=== PATIENT | female | born 1995 | race Two or more races ===

== ENCOUNTER 2018-12-15 11:09 | Inpatient (IN) | payer MEDICAID ==
[~2018-12-15] VITALS: Ht 154.9 cm; Wt 54.5 kg
[2018-12-15] MEDS: ACETAMINOPHEN 325 MG TABLET PO ONE ×2 (11:50→12:28)
[2018-12-15] MEDS ORDERED: SODIUM CHLORIDE 0.9% 2,200 ML IV ONE (12:00)
[2018-12-15] MEDS ORDERED: ACETAMINOPHEN 500 MG TABLET PO ONE (12:00)
[2018-12-15 12:42] LABS: BASOPHILS % (AUTO) 0.4 % (0.0-2.0); EOSINOPHILS % (AUTO) 0.1 % (1.0-6.0); HEMATOCRIT 38.2 % (36-46); HEMOGLOBIN 13.3 g/dL (12.0-16.0); LYMPHOCYTES # (AUTO) 1.6 K/uL (1.0-4.8); LYMPHOCYTES % (AUTO) 6.6 % (22.0-44.0); MEAN CORPUSCULAR HEMOGLOBIN 31.4 pg (26.0-34.0); MEAN CORPUSCULAR HGB CONC 34.9 G/dL (31.0-37.0); MEAN CORPUSCULAR VOLUME 90 fL (80-100); MONOCYTES # (AUTO) 1.2 K/uL (0.1-1.0); NEUTROPHILS # (AUTO) 20.7 K/uL (1.8-7.7); PLATELET COUNT (AUTO) 394 K/uL (150-450); RED BLOOD CELL COUNT(AUTO) 4.25 MIL/uL (4.00-5.20); RED CELL DISTRIBUTION WIDTH 14.5 % (11.5-14.5)
[2018-12-15 12:45] LABS: NEUTROPHILS % (AUTO) 87.9 % (40.0-70.0)
[2018-12-15 13:03] LABS: LACTIC ACID 1.4 mmol/L (0.4-2.0)
[2018-12-15 13:10] LABS: ALANINE AMINOTRANSFERASE 23 U/L (12-78); ALBUMIN 3.2 g/dL (3.4-5.0); ALKALINE PHOSPHATASE 138 U/L (46-116); ANION GAP 16 mmol/L (8-16); ASPARTATE AMINOTRANSFERASE 15 U/L (15-37); BILIRUBIN,TOTAL 0.6 mg/dL (0.1-1.0); CALCIUM, TOTAL 8.3 mg/dL (8.8-10.5); CARBON DIOXIDE 20 mmol/L (22-29); CHLORIDE 103 mmol/L (98-107); CREATININE 0.64 mg/dL (0.60-1.30); GLOMERULAR FILTR. RATE CALC > 60 mL/min (>60); GLUCOSE,RANDOM 118 mg/dL (70-110); SODIUM SERUM 139 mmol/L (136-145); TOTAL PROTEIN, SERUM 7.6 g/dL (6.4-8.2); UREA NITROGEN, BLOOD 15 mg/dL (7-18)
[2018-12-15 13:26] LABS: APPEARANCE,URINE CLOUDY (CLEAR); BILIRUBIN,URINE NEGATIVE (NEGATIVE); GLUCOSE, URINE (UA) NEGATIVE (NEGATIVE); KETONES,URINE NEGATIVE (NEGATIVE); LEUKOCYTE ESTERASE ,URINE LARGE (NEGATIVE); NITRATE,URINE NEGATIVE (NEGATIVE); OCCULT BLOOD,URINE MODERATE (NEGATIVE); PH,URINE 5.5 (5.0-8.0); PROTEIN,URINE NEGATIVE (NEGATIVE)
[2018-12-15 13:46] LABS: WBC,URINE 51-100 /HPF (0-5)
[2018-12-15 13:47] LABS: BACTERIA,URINE Few /HPF (None Seen); SQUAMOUS EPITHELIAL CELL,UR Few /LPF (None Seen)
[2018-12-15] MEDS ORDERED: MAGNESIUM SULFATE 2 GM/WATER 50 ML IV ONE (14:15)
[2018-12-15] MEDS ORDERED: POTASSIUM CHLORIDE 20 MEQ ER TABLET PO ONE (14:15)
[2018-12-15] MEDS ORDERED: AMPICILLIN SODIUM/SULBACTAM NA 1.5 GM/VIAL IM ONE (14:45)
[2018-12-15] MEDS ORDERED: DOXYCYCLINE HYCLATE 100 MG in DEXTROSE 5%-WATER 100 ML IV ONE (14:45)
[2018-12-15] MEDS ORDERED: MORPHINE SULFATE 4 MG/ML SYRINGE IVP ONE (15:30)
[2018-12-15] MEDS ORDERED: 0.9% SODIUM CHLORIDE 10 ML SYRINGE IVP PRN (15:30)
[2018-12-15] MEDS ORDERED: DEXTROSE 5% IV ONE (15:30)
[2018-12-15] MEDS ORDERED: WATER IV ONE (15:30)
[2018-12-15] MEDS ORDERED: CLINDAMYCIN 900 MG/D5% WATER 50 ML IV ONE (15:30)
[2018-12-15] MEDS ORDERED: CefoTEtan DISOD 2 GM/DEXTROSE 50 ML IV ONE (15:30)
[2018-12-15] MEDS ORDERED: GENTAMICIN SULFATE IV ONE (15:30)
[2018-12-15] MEDS ORDERED: ONDANSETRON HCL 4 MG/2 ML VIAL IVP PRN (15:30)
[2018-12-15] MEDS ORDERED: ACETAMINOPHEN 325 MG TABLET PO PRN (15:30)
[2018-12-15 18:18] VITALS: BP 124/77
[2018-12-15] MEDS ORDERED: OXYTOCIN 30 UNITS/LACT RINGERS 500 ML IV ONE (19:02)
[2018-12-15] MEDS ORDERED: LIDOCAINE/PF 1% 30 ML VIAL INJ PRN (19:15)
[2018-12-15] MEDS ORDERED: IBUPROFEN 800 MG TABLET PO PRN (19:15)
[2018-12-15] MEDS ORDERED: MAGNESIUM HYDROXIDE SUSPENSION 30 ML UDCUP PO PRN (19:15)
[2018-12-15] MEDS ORDERED: OxyCODONE HCL/ACETAMINOPHEN 5-325 MG TABLET PO PRN (19:15)
[2018-12-15] MEDS ORDERED: LANOLIN 7 GM OINTMENT TP PRN (19:15)
[2018-12-15] MEDS ORDERED: GLYCERIN/WITCH HAZEL LEAF 40 PADS JAR TP PRN (19:15)
[2018-12-15] MEDS ORDERED: *CLINICAL-GENTAMICIN DOSING CLINICAL ONE (19:15)
[2018-12-15] MEDS ORDERED: BENZOCAINE 20%/MENTHOL 56 GM SPRAY CANISTER TP PRN (19:15)
[2018-12-15] MEDS ORDERED: *CLINICAL-RX DOSING [ENTER DRUG IN COMMENTS] CLINICAL ONE (20:00)
[2018-12-15] MEDS: OxyCODONE HCL/ACETAMINOPHEN 5-325 MG TABLET PO PRN (20:57)
[2018-12-15] MEDS: RINGERS SOLUTION,LACTATED 1,000 ML IV SCH (20:57)
[2018-12-16] MEDS: CLINDAMYCIN 900 MG/D5% WATER 50 ML IV SCH ×3 (00:02→20:00)
[2018-12-16] MEDS: RINGERS SOLUTION,LACTATED 1,000 ML IV SCH (05:44)
[2018-12-16] MEDS: CefoTEtan DISOD 2 GM/DEXTROSE 50 ML IV SCH ×2 (05:50→18:33)
[2018-12-16 05:52] LABS: BASOPHILS % (AUTO) 0.2 % (0.0-2.0); EOSINOPHILS % (AUTO) 1.2 % (1.0-6.0); HEMATOCRIT 35.3 % (36-46); HEMOGLOBIN 12.3 g/dL (12.0-16.0); LYMPHOCYTES # (AUTO) 1.9 K/uL (1.0-4.8); LYMPHOCYTES % (AUTO) 8.3 % (22.0-44.0); MEAN CORPUSCULAR HEMOGLOBIN 31.1 pg (26.0-34.0); MEAN CORPUSCULAR VOLUME 89 fL (80-100); MONOCYTES # (AUTO) 0.9 K/uL (0.1-1.0); MONOCYTES % (AUTO) 3.8 % (2.0-9.0); PLATELET COUNT (AUTO)-OB 382 K/uL (150-450); RED BLOOD CELL COUNT(AUTO) 3.98 MIL/uL (4.00-5.20); RED CELL DISTRIBUTION WIDTH 14.4 % (11.5-14.5)
[2018-12-16] MEDS: OxyCODONE HCL/ACETAMINOPHEN 5-325 MG TABLET PO PRN ×3 (06:02→16:44)
[2018-12-16 06:08] LABS: NEUTROPHILS % (AUTO) 86.5 % (40.0-70.0)
[2018-12-16] MEDS: GENTAMICIN SULFATE IV SCH (17:37)
[2018-12-16] MEDS: DEXTROSE 5% IV SCH (17:37)
[2018-12-16] MEDS: WATER IV SCH (17:37)
[2018-12-17] MEDS: CLINDAMYCIN 900 MG/D5% WATER 50 ML IV SCH ×3 (04:08→21:31)
[2018-12-17] MEDS: CefoTEtan DISOD 2 GM/DEXTROSE 50 ML IV SCH (06:11)
[2018-12-17 06:35] LABS: ANION GAP 8 mmol/L (8-16); CALCIUM, TOTAL 8.6 mg/dL (8.8-10.5); CARBON DIOXIDE 27 mmol/L (22-29); CHLORIDE 103 mmol/L (98-107); CREATININE 0.64 mg/dL (0.60-1.30); GLOMERULAR FILTR. RATE CALC > 60 mL/min (>60); GLUCOSE,RANDOM 85 mg/dL (70-110); SODIUM SERUM 138 mmol/L (136-145); UREA NITROGEN, BLOOD 10 mg/dL (7-18)
[2018-12-17] MEDS: RINGERS SOLUTION,LACTATED 1,000 ML IV SCH (14:26)
[2018-12-17] MEDS: DEXTROSE 5% IV SCH (17:38)
[2018-12-17] MEDS: WATER IV SCH (17:38)
[2018-12-17] MEDS: GENTAMICIN SULFATE IV SCH (17:38)
[2018-12-18] MEDS: CLINDAMYCIN 900 MG/D5% WATER 50 ML IV SCH (05:56)
[2018-12-18] MEDS ORDERED: AMOX1TAB16 PO (10:47)
== END 2018-12-18 11:00 | disposition home or self-care (01) | DRG 561 ==
LOC: EMS 11:10 → 4E 16:56 → 4S 16:57 → UNDODISIN 18:30
PROVIDERS: ADMIT Obstetrics & Gynecology; ATTEND Obstetrics & Gynecology
DX: O85 Puerperal sepsis (principal); O91.22 Nonpurulent mastitis associated with the puerperium
CPT/HCPCS: 76856; 83605; 83735; 87040; 87086; 87210; 87491; 87591; 99291; J0295; J1580; J3475; J3490; J7030; J7060; J7120